=== PATIENT | male | born 1970 | race Caucasian/White ===

== ENCOUNTER 2023-09-23 20:19 | Outpatient (CLI) | payer BC, SELFPAY | END 2023-09-23 20:20 | disposition home or self-care (01) | PROVIDERS: PCP Physician Assistant Medical; Visit Provider Internal Medicine | DX: G47.33 Obstructive sleep apnea (adult) (pediatric) (principal); R09.02 Hypoxemia | CPT/HCPCS: 95811 ==

== ENCOUNTER 2023-10-22 21:10 | Outpatient (CLI) | payer BC, SELFPAY | END 2023-10-22 21:11 | disposition home or self-care (01) | LOC: SLEEP 21:10 | PROVIDERS: PCP Physician Assistant Medical; Visit Provider Internal Medicine | DX: G47.33 Obstructive sleep apnea (adult) (pediatric) (principal); R09.02 Hypoxemia; G47.31 Primary central sleep apnea | CPT/HCPCS: 95811 ==